=== PATIENT | male | born 1990 | race African-American/Black ===

== ENCOUNTER 2017-02-03 13:50 | Emergency (ER) | payer OTHER ==
[~2017-02-03] VITALS: Ht 190.5 cm; Wt 68.0 kg
[2017-02-03 13:53] VITALS: BP 107/70
[2017-02-03 14:16] LABS: URINE BILIRUBIN NEGATIVE (Negative); URINE BLOOD NEGATIVE (Negative); URINE COLOR YELLOW; URINE GLUCOSE-RANDOM* NEGATIVE (Negative); URINE KETONES NEGATIVE (Negative); URINE NITRITE NEGATIVE (Negative); URINE PROTEIN (DIPSTICK) NEGATIVE (Negative); URINE SPECIFIC GRAVITY >= 1.030 (1.003-1.035); URINE UROBILINOGEN 0.2 E.U./dl (0.2-1.0)
== END 2017-02-03 14:21 | disposition home or self-care (01) ==
LOC: ER 13:50
PROVIDERS: Physician Assistant
DX: Z11.3 Encounter for screening for infections with a predominantly sexual mode of transmission (principal); R30.0 Dysuria; F17.210 Nicotine dependence, cigarettes, uncomplicated